=== PATIENT | female | born 1945 | race American Indian/Alaskan Native ===

== ENCOUNTER 2017-02-28 09:40 | Emergency (ER) | payer OTHER ==
[2017-02-28 10:12] VITALS: BMI 29.0
--- NOTE | 2017-02-28 10:19 | PDOC ---
History of Present Illness <Sammy Duncan - Last Filed: 02/28/17 12:33> - General History Source: Patient Exam Limitations: No Limitations - History of Present Illness Initial Comments: 02/28/17 10:48 The patient is a 71 year old female, accompanied by daughter, with a significant past medical history of hypertension, hyperlipidemia and diabetes, who presents to the emergency department complaining of right scapula pain for approximately 5 days. As per daughter, the patient initially experienced pain to the right hip, which resolved on its own. She states the patient then began to feel pain to the right scapula. Daughter reports associated edema to the right scapula. She reports the patients pain is exacerbated movement. She reports a subjective fever, for which the patient was given tylenol with minimal relief. The patient denies any trauma to the back or heavy lifting. The patient denies any chills, cough, headache, or dizziness. The patient denies any paresthesias, numbness, chest pain, shortness of breath, diaphoresis, or palpitations. The patient denies any recent travel or sick contacts Allergies: NKDA Past Surgical History: None reported. Social History: Non smoker. No ETOH or drug use. <Marlene Myles - Last Filed: 02/28/17 17:11> - General Chief Complaint: Pain, Acute Stated Complaint: SHOULDER PAIN Past History - Past Medical History Diabetes: Yes HTN: Yes Hypercholesterolemia: Yes - Psycho/Social/Smoking Cessation Hx Anxiety: No Suicidal Ideation: No Smoking History: Never smoked Have you smoked in the past 12 months: No Information on smoking cessation initiated: No Hx Alcohol Use: No Drug/Substance Use Hx: No Substance Use Type: None Hx Substance Use Treatment: No <Sammy Duncan - Last Filed: 02/28/17 12:33> <Marlene Myles - Last Filed: 02/28/17 17:11> - Past Medical History Allergies/Adverse Reactions: Allergies Allergy/AdvReac Type Severity Reaction Status Date / Time No Known Allergies Allergy Verified 02/28/17 10:12 Home Medications: Ambulatory Orders Amlodipine Besylate [Norvasc -] 10 mg PO DAILY tablet 07/05/16 Aspirin [ASA -] 81 mg PO DAILY tab.chew 07/05/16 Atorvastatin Ca [Lipitor] 10 mg PO Q2D@2200 tablet 07/05/16 Losartan Potassium [Cozaar -] 100 mg PO DAILY tablet 07/05/16 Metformin HCl [Glucophage -] 500 mg PO BID #30 tablet 07/05/16 Oxycodone HCl/Acetaminophen [Percocet 5-325 mg Tablet] 1 - 2 tab PO Q4H #20 tablet MDD 6 02/28/17 Review of Systems - Review of Systems Able to Perform ROS?: Yes Comments:: 02/28/17 10:51 GENERAL/CONSTITUTIONAL: Yes: +fever. No chills. No weakness. HEAD, EYES, EARS, NOSE AND THROAT: No change in vision. No ear pain or discharge. No sore throat. CARDIOVASCULAR: No chest pain or shortness of breath. RESPIRATORY: No cough, wheezing, or hemoptysis. GASTROINTESTINAL: No nausea, vomiting, diarrhea or constipation. GENITOURINARY: No dysuria, frequency, or change in urination. MUSCULOSKELETAL: Yes: +right hip pain, +right scapula pain. No other joint or muscle swelling or pain. No neck pain. SKIN: No rash NEUROLOGIC: No headache, vertigo, loss of consciousness, or change in strength/ sensation. ENDOCRINE: No increased thirst. No abnormal weight change. HEMATOLOGIC/LYMPHATIC: No anemia, easy bleeding, or history of blood clots. ALLERGIC/IMMUNOLOGIC: No hives or skin allergy. <Marlene Myles - Last Filed: 02/28/17 17:11> *Physical Exam - Vital Signs Last Vital Signs Temp Pulse Resp BP Pulse Ox 100.1 F H 108 H 20 153/77 98 02/28/17 10:08 02/28/17 10:08 02/28/17 10:08 02/28/17 10:08 02/28/17 10:08 <Sammy Duncan - Last Filed: 02/28/17 12:33> - Vital Signs Last Vital Signs Temp Pulse Resp BP Pulse Ox 100.1 F H 108 H 20 153/77 98 02/28/17 10:08 02/28/17 10:08 02/28/17 10:08 02/28/17 10:08 02/28/17 10:08 - Physical Exam Comments: 02/28/17 10:52 GENERAL: Awake, alert, and fully oriented, in no acute distress HEAD: No signs of trauma EYES: PERRLA, EOMI, sclera anicteric, conjunctiva clear ENT: Auricles normal inspection, hearing grossly normal, nares patent, oropharynx clear without exudates. Moist mucosa NECK: Normal ROM, supple, no lymphadenopathy, JVD, or masses LUNGS: Breath sounds equal, clear to auscultation bilaterally. No wheezes, and no crackles HEART: Regular rate and rhythm, normal S1 and S2, no murmurs, rubs or gallops ABDOMEN: Soft, nontender, normoactive bowel sounds. No guarding, no rebound. No masses EXTREMITIES: Normal range of motion, no edema. No clubbing or cyanosis. No cords, erythema, or tenderness NEUROLOGICAL: Cranial nerves II through XII grossly intact. Normal speech, normal gait SKIN: Warm, Dry, normal turgor, no rashes or lesions noted. <Marlene Myles - Last Filed: 02/28/17 17:11> Heart Score/ECG Review - ECG Intrepretation Comment:: 02/28/17 17:09 Vent Rate: 98 bpm IMPRESSION: Normal Sinus Rhythm <Marlene Myles - Last Filed: 02/28/17 17:11> ED Treatment Course - LABORATORY CBC & Chemistry Diagram: 02/28/17 11:00 02/28/17 11:00 <Sammy Duncan - Last Filed: 02/28/17 12:33> - LABORATORY CBC & Chemistry Diagram: 02/28/17 11:00 02/28/17 11:00 - RADIOLOGY Radiograph Interpretation: 02/28/17 17:10 EXAM: Right shoulder X-Ray INTERPRETED BY: Dr. Calvert REVIEWED BY: Dr. Duncan IMPRESSION: No acute pathology. EXAM: CXR INTERPRETED BY: Dr. Segura REVIEWED BY: Dr. Duncan IMPRESSION: No evidence of active pulmonary disease. <Marlene Myles - Last Filed: 02/28/17 17:11> *DC/Admit/Observation/Transfer - Discharge Dispostion Admit: No - Attestations Physician Attestion: 02/28/17 10:19 I, Dr. Sammy Duncan, attest that this document has been prepared under my direction and personally reviewed by me in its entirety. I further attest, that it accurately reflects all work, treatment, procedures and medical decision -making performed by me. <Sammy Duncan - Last Filed: 02/28/17 12:33> - Attestations Scribe Attestion: 02/28/17 10:52 Documentation prepared by Marlene Myles, acting as medical stenographer for Sammy Duncan DO. <Marlene Myles - Last Filed: 02/28/17 17:11> Diagnosis at time of Disposition: Bursitis of shoulder, right Diabetes mellitus out of control Qualifiers: Diabetes mellitus type: type 2 Diabetes mellitus complication status: without complication - Discharge Dispostion Disposition: HOME Condition at time of disposition: Improved - Prescriptions Prescriptions: Oxycodone HCl/Acetaminophen [Percocet 5-325 mg Tablet] 1 - 2 tab PO Q4H #20 tablet MDD 6 - Referrals Referrals: Masha Hart MD [Primary Care Provider] - Ronaldo Vieira MD [Staff Physician] - - Patient Instructions Printed Discharge Instructions: DI for Bursitis Additional Instructions: TAKE YOUR BLOOD SUGAR MEDICINE SOON YOU GET HOME. TEST YOUR SUGARS TODAY AND THROUGH THE WEEKEND. YOU CAN NOT STAY IN THE 400"s. RETURN TO US IF YOU CAN NOT GET YOUR SUGAR DOWN. Take the percocet for bad pain. wear the sling for comfort. Follow up with orthopedics next week. Best- Dr. Sammy Duncan
[2017-02-28 11:08] VITALS: TEMP 100.7
[2017-02-28 11:23] LABS: BASOPHIL 0.9 % (0-2.0); EOSINOPHIL 0.5 % (0-4.5); MCH 26.8 pg (25.7-33.7); MCHC 34.2 g/dl (32.0-36.0); MEAN CELL VOLUME 78.3 fl (80-96); MEAN PLT VOLUME 7.5 fl (7.5-11.1); NEUTROPHILS 85.3 % (42.8-82.8); PLATELET COUNT 248 K/MM3 (134-434); RDW 13.3 % (11.6-15.6)
[2017-02-28 11:24] LABS: INR 1.14 (0.82-1.09); PROTHROMBIN TIME (PATIENT) 12.6 SEC (9.98-11.88)
[2017-02-28 11:35] LABS: ALBUMIN 3.4 g/dl (3.4-5.0); ANION GAP 16 (8-16); BILIRUBIN,TOTAL 0.4 mg/dL (0.2-1.0); CALCIUM 9.3 mg/dL (8.5-10.1); CO2 24 mmol/L (21-32); COCKROFT - GAULT 46.7245; CREATININE 1.1 mg/dL (0.55-1.02); SGOT/AST 10 U/L (15-37); SGPT/ALT 19 U/L (12-78); TOT PROT 7.5 g/dl (6.4-8.2)
[2017-02-28 11:38] LABS: ALK PHOS 108 U/L (45-117); TROPONIN I < 0.02 ng/ml (0.00-0.05)
[2017-02-28 11:39] LABS: GLUCOSE,RANDOM 427 mg/dL (74-106)
[2017-02-28 11:46] LABS: URINE APPEARANCE CLEAR; URINE BILIRUBIN NEGATIVE (NEGATIVE); URINE BLOOD NEGATIVE (NEGATIVE); URINE COLOR STRAW; URINE GLUCOSE (UA) 3+ (NEGATIVE); URINE KETONE NEGATIVE (NEGATIVE); URINE NITRITE NEGATIVE (NEGATIVE); URINE PROTEIN NEGATIVE (NEGATIVE); URINE UROBILINOGEN NEGATIVE E.U./dl (0.2-1.0)
[2017-02-28 11:50] LABS: URINE LEUK ESTERASE TRACE (NEGATIVE)
[2017-02-28 11:51] LABS: URINE RBC 2 /hpf (0-3); URINE WBC 3 /hpf (3-5)
[2017-02-28] MEDS ORDERED: OXYCODONE/APAP 5/325MG COMBO TABLET PO ONE (12:06)
[2017-02-28] MEDS ORDERED: INSULIN REGULAR HUMAN 100 UNITS/ML *VIAL IVPUSH ONE (12:08)
[2017-02-28] MEDS ORDERED: OXYCODONE/APAP 5/325MG COMBO TABLET ONE (12:58)
[2017-02-28 13:09] VITALS: BP 181/77; PULSE 91
--- NOTE | 2017-02-28 16:11 | EKG ---
Test Reason : Blood Pressure : / mmHG Vent. Rate : 098 BPM Atrial Rate : 098 BPM P-R Int : 160 ms QRS Dur : 090 ms QT Int : 340 ms P-R-T Axes : 067 026 029 degrees QTc Int : 434 ms NORMAL SINUS RHYTHM NORMAL ECG WHEN COMPARED WITH ECG OF 03-JUL-2016 11:50, NONSPECIFIC T WAVE ABNORMALITY NO LONGER EVIDENT IN ANTERIOR LEADS Confirmed by AMADOR HAWKINS MD ([id number]) on 02/28/2017 4:10:38 PM Referred By: Confirmed By:AMADOR HAWKINS MD
== END 2017-02-28 13:09 | disposition home or self-care (01) ==
LOC: JER 09:40
PROC: 3E033VG Introduction of Insulin into Peripheral Vein, Percutaneous Approach (ICD-10-PCS; principal; 2017-02-28)
DX: M75.51 Bursitis of right shoulder (principal); E11.65 Type 2 diabetes mellitus with hyperglycemia; Z79.84 Long term (current) use of oral hypoglycemic drugs; I10 Essential (primary) hypertension; E78.00 Pure hypercholesterolemia, unspecified
CPT/HCPCS: 36415; 71010-TC; 73030-TC-RT; 80053; 81003; 81015; 82550; 84484; 85025; 85610; 87040; 87086; 93005; 93010; 96374; 99283-25

== ENCOUNTER 2018-09-19 11:43 | Inpatient (IN) | payer OTHER ==
[2018-09-19] MEDS ORDERED: SODIUM CHLORIDE 1,000 ML IV STA (12:52)
[2018-09-19] MEDS ORDERED: ACETAMINOPHEN 1000 MG/100 ML VIAL (NON FORMULARY) IVPB ONE (12:52)
[2018-09-19] MEDS ORDERED: ACETAMINOPHEN INJECTION 100 ML IVPB ONE (13:09)
[2018-09-19 13:30] LABS: BASO % 0.7 % (0-2.0); HEMATOCRIT 34.2 % (32.4-45.2); LYMPH % 1.7 % (8-40); MCH 26.4 pg (25.7-33.7); MEAN CELL VOLUME 75.3 fl (80-96); MEAN PLT VOLUME 7.2 fl (7.5-11.1); NEUT % 92.6 % (42.8-82.8); PLATELET COUNT 325 K/MM3 (134-434); RBC 4.53 M/mm3 (3.60-5.2); RDW 14.9 % (11.6-15.6); WHITE BLOOD COUNT 29.1 K/mm3 (4.0-10.0)
[2018-09-19 13:33] LABS: URINE APPEARANCE CLEAR; URINE BILIRUBIN NEGATIVE (<2.0 mg/dL); URINE COLOR LTYELLOW; URINE GLUCOSE (UA) 3+ (NEGATIVE); URINE KETONE NEGATIVE (NEGATIVE); URINE LEUK ESTERASE 2+ (NEGATIVE); URINE NITRITE NEGATIVE (NEGATIVE); URINE PROTEIN 2+ (NEGATIVE); URINE UROBILINOGEN NEGATIVE mg/dL (0.2-1.0)
[2018-09-19 13:42] LABS: INR 1.36 (0.83-1.09); PROTHROMBIN TIME (PATIENT) 16.1 SEC (9.7-13.0)
[2018-09-19 13:43] LABS: VENOUS PC02 42.2 mmHg (38-52); VENOUS PH 7.32 (7.32-7.42); VENOUS PO2 39.1 mmHg (28-48)
[2018-09-19 13:55] LABS: EPI CELLS RARE /HPF (FEW); URINE BACTERIA RARE /hpf (NONE SEEN)
[2018-09-19 14:06] LABS: ALBUMIN 3.6 g/dl (3.4-5.0); ALK PHOS 109 U/L (45-117); ANION GAP 13 MMOL/L (8-16); BILIRUBIN,TOTAL 0.8 mg/dL (0.2-1); BLOOD UREA NITROGEN 19 mg/dL (7-18); CALCIUM 9.5 mg/dL (8.5-10.1); CHLORIDE 85 mmol/L (98-107); CO2 23 mmol/L (21-32); CREATININE 1.1 mg/dL (0.55-1.3); POTASSIUM 3.6 mmol/L (3.5-5.1); SGOT/AST 12 U/L (15-37); SGPT/ALT 19 U/L (13-61); SODIUM 121 mmol/L (136-145); TOT PROT 7.7 g/dl (6.4-8.2)
--- NOTE | 2018-09-19 14:06 | PDOC ---
History of Present Illness - General Chief Complaint: Blood Sugar Problem Stated Complaint: SUGAR PROBLEM Time Seen by Provider: 09/19/18 12:11 - History of Present Illness Initial Comments: 09/19/18 14:00 The patient is a 72 year old female with a history of hypertension, hyperlipidemia, and diabetes who presents to the emergency department with weakness and high blood sugar since this morning. Pt endorses lower abdominal pain and fevers since last night. Denies N/V but endorses diarrhea. Denies CP/ SOB. The patient reports that she woke up this morning and measured her blood sugar to be 500. She admits to not taking her DM meds for 2 days. The patient denies any other symptoms. She denies any chills, nausea, vomiting, constipation , or urinary symptoms. She denies any chest pain, shortness of breath, headache or dizziness. The patient denies any other complaints. Past History - Past Medical History Allergies/Adverse Reactions: Allergies Allergy/AdvReac Type Severity Reaction Status Date / Time No Known Allergies Allergy Verified 09/19/18 12:21 Home Medications: Ambulatory Orders Amlodipine Besylate [Norvasc -] 10 mg PO DAILY tablet 07/05/16 Aspirin [ASA -] 81 mg PO DAILY tab.chew 07/05/16 Atorvastatin Ca [Lipitor] 10 mg PO Q2D@2200 tablet 07/05/16 Losartan Potassium [Cozaar -] 100 mg PO DAILY tablet 07/05/16 metFORMIN HCL [Glucophage -] 500 mg PO BID #30 tablet 07/05/16 Oxycodone HCl/Acetaminophen [Percocet 5-325 mg Tablet] 1 - 2 tab PO Q4H #20 tablet MDD 6 02/28/17 COPD: No CHF: No Diabetes: Yes HTN: Yes Hypercholesterolemia: Yes - Suicide/Smoking/Psychosocial Hx Smoking History: Never smoked Have you smoked in the past 12 months: No Information on smoking cessation initiated: No Hx Alcohol Use: No Drug/Substance Use Hx: No Substance Use Type: None Hx Substance Use Treatment: No Review of Systems - Review of Systems Comments:: 09/19/18 14:08 GENERAL/CONSTITUTIONAL: + fever no chills. No weakness. HEAD, EYES, EARS, NOSE AND THROAT: No change in vision. No ear pain or discharge. No sore throat. CARDIOVASCULAR: No chest pain, no shortness of breath, no loss of consciousness RESPIRATORY: No cough, wheezing, or hemoptysis. GASTROINTESTINAL: + RLQ pain and diarrhea, No nausea, vomiting, or constipation. GENITOURINARY: No dysuria, frequency, or change in urination. MUSCULOSKELETAL: No joint or muscle swelling or pain. No neck or back pain. SKIN: No rash NEUROLOGIC: No vertigo, no change in strength/sensation. ENDOCRINE: No increased thirst. No abnormal weight change. HEMATOLOGIC/LYMPHATIC: No anemia, easy bleeding, or history of blood clots. ALLERGIC/IMMUNOLOGIC: No hives or skin allergy. *Physical Exam - Vital Signs Last Vital Signs Temp Pulse Resp BP Pulse Ox 102.3 F H 112 H 18 155/61 100 09/19/18 12:35 09/19/18 11:43 09/19/18 11:43 09/19/18 11:43 09/19/18 11:43 - Physical Exam Comments: 09/19/18 14:09 GENERAL: Awake, alert, and fully oriented, in no acute distress. HEAD: No signs of trauma EYES: PERRLA, EOMI, sclera anicteric, conjunctiva clear ENT: Auricles normal inspection, hearing grossly normal, nares patent, oropharynx clear without exudates. Moist mucosa NECK: Nontender, no stepoffs, Normal ROM, supple, no lymphadenopathy, JVD, or masses LUNGS: Breath sounds equal, clear to auscultation bilaterally. No wheezes, and no crackles HEART: Regular rate and rhythm, normal S1 and S2, no murmurs, rubs or gallops ABDOMEN: + RLQ mild tenderness, normoactive bowel sounds. No guarding, no rebound. No masses EXTREMITIES: Normal range of motion, no edema. No clubbing or cyanosis. No cords, erythema, or tenderness NEUROLOGICAL: Cranial nerves II through XII intact. 5/5 strength and sensation in all extremities, Normal speech, normal gait, normal cerebellar function SKIN: Warm, Dry, normal turgor, no rashes or lesions noted. Moderate Sedation - Procedure Monitoring Vital Signs: Procedure Monitoring Vital Signs Temperature 102.3 F H 09/19/18 12:35 Pulse Rate 112 H 09/19/18 11:43 Respiratory Rate 18 09/19/18 11:43 Blood Pressure 155/61 09/19/18 11:43 O2 Sat by Pulse Oximetry (%) 100 09/19/18 11:43 ED Treatment Course - LABORATORY CBC & Chemistry Diagram: 09/19/18 13:06 09/19/18 13:06 - ADDITIONAL ORDERS Additional order review: Laboratory Results 09/19/18 09/19/18 09/19/18 13:06 13:06 13:06 PT with INR INR PTT (Actin FS) VBG pH 7.32 POC VBG pCO2 42.2 POC VBG pO2 39.1 Mixed VBG HCO3 21.2 Urine Color Ltyellow Urine Appearance Clear Urine pH 6.0 Ur Specific [place] 1.011 Urine Protein 2+ H Urine Glucose (UA) 3+ H Urine Ketones Negative Urine Blood 1+ H Urine Nitrite Negative Urine Bilirubin Negative Urine Urobilinogen Negative Ur Leukocyte Esterase 2+ H D Acetone, Qual Negative L 09/19/18 13:06 PT with INR 16.10 H INR 1.36 H PTT (Actin FS) 25.0 L VBG pH POC VBG pCO2 POC VBG pO2 Mixed VBG HCO3 Urine Color Urine Appearance Urine pH Ur Specific [place] Urine Protein Urine Glucose (UA) Urine Ketones Urine Blood Urine Nitrite Urine Bilirubin Urine Urobilinogen Ur Leukocyte Esterase Acetone, Qual 09/19/18 13:06 RBC 4.53 MCV 75.3 L MCHC 35.0 RDW 14.9 D MPV 7.2 L Neutrophils % 92.6 H Lymphocytes % 1.7 L D Monocytes % 5.0 Eosinophils % 0.0 D Basophils % 0.7 - RADIOLOGY Radiology Studies Ordered: Category Date Time Status ABDOMEN & PELVIS CT WITH CONTR [CT] Stat CT Scan 09/19/18 12:55 Ordered CHEST X-RAY PORTABLE* [RAD] Stat Radiology 09/19/18 12:51 Ordered - Medications Given in the ED: ED Medications Discontinued Medications Generic Name Dose Route Start Last Admin Trade Name Freq PRN Reason Stop Dose Admin Acetaminophen 1,000 mg 09/19/18 12:52 09/19/18 13:10 Ofirmev Injection - IVPB 09/19/18 12:53 1,000 mg ONCE ONE Administration Sodium Chloride 1,000 mls @ 1,000 mls/hr 09/19/18 12:52 09/19/18 13:10 Normal Saline - IV 09/19/18 13:51 1,000 mls/hr ASDIR STA Administration Medical Decision Making - Medical Decision Making 09/19/18 14:09 72 F with fevers and weakness since last night, found to have high fsg today. Febrile in ED and tachycardic. Will perform septic work up. Suspect UTI. However , pt with RLQ pain ,will r/o appy. Pt's elevated sugars likely 2/2 med noncompliance and infection. Will assess for DKA/HHS. - Labs, cultures - CXR, UA - CTAP - IVF, tylenol 09/19/18 14:32 Labs notable for WBC 29 Na 121, corrected for glucose is 128. Will continue IVF UA consistent with UTI Zosyn given for urosepsis 09/19/18 16:22 CT shows ureteritis 09/19/18 16:29 Pt admitted to hospitalist. *DC/Admit/Observation/Transfer Diagnosis at time of Disposition: Urinary tract infection, Sepsis, Abdominal pain - Discharge Dispostion Decision to Admit order: Yes - Referrals Referrals: Masha Hart MD [Primary Care Provider] - - Patient Instructions - Post Discharge Activity - Attestations Physician Attestion: 09/19/18 16:30 I, Dr. Jose Mallory MD, attest that this document has been prepared under my direction and personally reviewed by me in its entirety. I further attest, that it accurately reflects all work, treatment, procedures and medical decision -making performed by me.
[2018-09-19 14:13] LABS: GLUCOSE,RANDOM 375 mg/dL (74-106)
[2018-09-19] MEDS ORDERED: PIPERACILLIN/TAZOB 4.5 GM 4.5 GM/100 ML BAG IVPB ONE (14:35)
[2018-09-19 14:38] LABS: ANISOCYTOSIS 2+; MACROCYTOSIS 0; PLATELET ESTIMATE NORMAL
--- NOTE | 2018-09-19 17:37 | HP ---
CHIEF COMPLAINT: Elevated glucose PCP: Dr. Hart HISTORY OF PRESENT ILLNESS: 72 year old female with a PMH significant for HTN, HLD, and diabetes presented to the ED with home glucose reading of 500 and muscle weakness since that that started this AM. Adult daughters provided history. She reports having diarrhea for 2 days and abdominal pain. She did not take her medications for the past 2 days. She has not had a UTI in 3 years. She reports her most recent Hgb A1c was about 2 weeks ago and it was 9. Patient is ambulatory at home and walks around the block regularly. Overall her health has been generally good. Denies lightheadedness, syncope, SOB, cough, congestion, chest pain, palpitations, n/v. Upon admission to the ED, she was found to have a temperature of 102.3, labs notable for WBC of 29, glucose of 375, CT showed right ureteritis. She was given zosyn, IV APAP, and a liter of NS. She reports her pain has improved since her admission and she is ready to go home. Recent Travel: No PAST MEDICAL HISTORY: DM HTN HLD PAST SURGICAL HISTORY: Hysterectomy Social History: Born in [place], Swedish speaking only, , has adult children Smoking: Never Alcohol: Never Drugs: Never Family History: CVA: Mother, father, sister Liver Cancer: Sister Allergies No Known Allergies Allergy (Verified 09/19/18 12:21) HOME MEDICATIONS: Home Medications Medication Instructions Recorded Amlodipine Besylate [Norvasc -] 10 mg PO DAILY tablet 07/05/16 Aspirin [ASA -] 81 mg PO DAILY tab.chew 07/05/16 Atorvastatin Ca [Lipitor] 10 mg PO Q2D@2200 tablet 07/05/16 Glimepiride 4 mg PO 09/19/18 Potassium Chloride [Klor-Con M10] 10 meq PO 09/19/18 Sitagliptin Phos/Metformin HCl BID 09/19/18 [Janumet Xr 50-1,000 mg Tablet] REVIEW OF SYSTEMS CONSTITUTIONAL: (+) fever, generalized weakness Absent: chills, diaphoresis, malaise, loss of appetite, weight change HEENT: Absent: rhinorrhea, nasal congestion, throat pain, throat swelling, difficulty swallowing, mouth swelling, ear pain, eye pain, visual changes CARDIOVASCULAR: Absent: chest pain, syncope, palpitations, irregular heart rate, lightheadedness , peripheral edema RESPIRATORY: Absent: cough, shortness of breath, dyspnea with exertion, orthopnea, wheezing, stridor, hemoptysis GASTROINTESTINAL: (+) abdominal pain, diarrhea Absent: abdominal distension, nausea, vomiting, constipation, melena, hematochezia GENITOURINARY: Absent: dysuria, frequency, urgency, hesitancy, hematuria, flank pain, genital pain MUSCULOSKELETAL: Absent: myalgia, arthralgia, joint swelling, back pain, neck pain SKIN: Absent: rash, itching, pallor HEMATOLOGIC/IMMUNOLOGIC: Absent: easy bleeding, easy bruising, lymphadenopathy, frequent infections ENDOCRINE: Absent: unexplained weight gain, unexplained weight loss, heat intolerance, cold intolerance NEUROLOGIC: Absent: headache, focal weakness or paresthesias, dizziness, unsteady gait, seizure, mental status changes, bladder or bowel incontinence PSYCHIATRIC: Absent: anxiety, depression, suicidal or homicidal ideation, hallucinations. PHYSICAL EXAMINATION Vital Signs - 24 hr 09/19/18 09/19/18 09/19/18 11:43 12:35 15:00 Temperature 98.5 F 102.3 F H 97.9 F Pulse Rate 112 H Pulse Rate [ 109 H Right Radial] Respiratory 18 16 Rate Blood Pressure 155/61 Blood Pressure 141/63 [Right] O2 Sat by Pulse 100 99 Oximetry (%) GENERAL: Awake, alert, and fully oriented, in no acute distress. HEAD: Normal with no signs of trauma. EYES: Pupils equal, round and reactive to light, extraocular movements intact, sclera anicteric, conjunctiva clear. No lid lag. EARS, NOSE, THROAT: Ears normal, nares patent, oropharynx clear without exudates. Moist mucous membranes. NECK: Normal range of motion, supple without lymphadenopathy, JVD, or masses. LUNGS: Breath sounds equal, clear to auscultation bilaterally. No wheezes, and no crackles. No accessory muscle use. HEART: Regular rate and rhythm, normal S1 and S2 without murmur, rub or gallop. ABDOMEN: Soft, nontender, not distended, normoactive bowel sounds, no guarding, no rebound, no masses. No hepatomegaly or splenomegaly. MUSCULOSKELETAL: Normal range of motion at all joints. No bony deformities or tenderness. No CVA tenderness. UPPER EXTREMITIES: 2+ pulses, warm, well-perfused. No cyanosis. No clubbing. No peripheral edema. LOWER EXTREMITIES: 2+ pulses, warm, well-perfused. No calf tenderness. No peripheral edema. NEUROLOGICAL: Cranial nerves II-XII intact. Normal speech. Normal gait. PSYCHIATRIC: Cooperative. Good eye contact. Appropriate mood and affect. SKIN: Warm, dry, normal turgor, no rashes or lesions noted, normal capillary refill. Laboratory Results - last 24 hr 09/19/18 09/19/18 09/19/18 13:06 13:06 13:06 WBC 29.1 H RBC 4.53 Hgb 12.0 Hct 34.2 MCV 75.3 L MCH 26.4 MCHC 35.0 RDW 14.9 D Plt Count 325 D MPV 7.2 L Absolute Neuts (auto) 27.0 H Neutrophils % 92.6 H Neutrophils % (Manual) 84.0 H Band Neutrophils % 5.0 Lymphocytes % 1.7 L D Lymphocytes % (Manual) 2.0 L Monocytes % 5.0 Monocytes % (Manual) 6 Eosinophils % 0.0 D Eosinophils % (Manual) 0.0 Basophils % 0.7 Basophils % (Manual) 0.0 Myelocytes % (Man) 1 Promyelocytes % (Man) 0 Blast Cells % (Manual) 0 Nucleated RBC % 0 Metamyelocytes 1 Hypochromia 0 Platelet Estimate Normal Platelet Comment Present Polychromasia 1+ Poikilocytosis 1+ Anisocytosis 2+ Microcytosis 2+ Macrocytosis 0 PT with INR 16.10 H INR 1.36 H PTT (Actin FS) 25.0 L VBG pH POC VBG pCO2 POC VBG pO2 Mixed VBG HCO3 Sodium Potassium Chloride Carbon Dioxide Anion Gap BUN Creatinine Creat Clearance w eGFR Random Glucose Lactic Acid Calcium Total Bilirubin AST ALT Alkaline Phosphatase Troponin I Total Protein Albumin Urine Color Ltyellow Urine Appearance Clear Urine pH 6.0 Ur Specific [place] 1.011 Urine Protein 2+ H Urine Glucose (UA) 3+ H Urine Ketones Negative Urine Blood 1+ H Urine Nitrite Negative Urine Bilirubin Negative Urine Urobilinogen Negative Ur Leukocyte Esterase 2+ H D Urine WBC (Auto) 105 Urine RBC (Auto) 6 Ur Epithelial Cells Rare Urine Bacteria Rare Acetone, Qual Influenza A (Rapid) Influenza B (Rapid) 09/19/18 09/19/18 09/19/18 13:06 13:06 13:06 WBC RBC Hgb Hct MCV MCH MCHC RDW Plt Count MPV Absolute Neuts (auto) Neutrophils % Neutrophils % (Manual) Band Neutrophils % Lymphocytes % Lymphocytes % (Manual) Monocytes % Monocytes % (Manual) Eosinophils % Eosinophils % (Manual) Basophils % Basophils % (Manual) Myelocytes % (Man) Promyelocytes % (Man) Blast Cells % (Manual) Nucleated RBC % Metamyelocytes Hypochromia Platelet Estimate Platelet Comment Polychromasia Poikilocytosis Anisocytosis Microcytosis Macrocytosis PT with INR INR PTT (Actin FS) VBG pH 7.32 POC VBG pCO2 42.2 POC VBG pO2 39.1 Mixed VBG HCO3 21.2 Sodium 121 L Potassium 3.6 Chloride 85 L Carbon Dioxide 23 Anion Gap 13 BUN 19 H Creatinine 1.1 Creat Clearance w eGFR 48.82 Random Glucose 375 H* Lactic Acid Calcium 9.5 Total Bilirubin 0.8 AST 12 L ALT 19 Alkaline Phosphatase 109 Troponin I < 0.02 Total Protein 7.7 Albumin 3.6 Urine Color Urine Appearance Urine pH Ur Specific [place] Urine Protein Urine Glucose (UA) Urine Ketones Urine Blood Urine Nitrite Urine Bilirubin Urine Urobilinogen Ur Leukocyte Esterase Urine WBC (Auto) Urine RBC (Auto) Ur Epithelial Cells Urine Bacteria Acetone, Qual Influenza A (Rapid) Influenza B (Rapid) 09/19/18 09/19/18 09/19/18 13:06 13:06 13:30 WBC RBC Hgb Hct MCV MCH MCHC RDW Plt Count MPV Absolute Neuts (auto) Neutrophils % Neutrophils % (Manual) Band Neutrophils % Lymphocytes % Lymphocytes % (Manual) Monocytes % Monocytes % (Manual) Eosinophils % Eosinophils % (Manual) Basophils % Basophils % (Manual) Myelocytes % (Man) Promyelocytes % (Man) Blast Cells % (Manual) Nucleated RBC % Metamyelocytes Hypochromia Platelet Estimate Platelet Comment Polychromasia Poikilocytosis Anisocytosis Microcytosis Macrocytosis PT with INR INR PTT (Actin FS) VBG pH POC VBG pCO2 POC VBG pO2 Mixed VBG HCO3 Sodium Potassium Chloride Carbon Dioxide Anion Gap BUN Creatinine Creat Clearance w eGFR Random Glucose Lactic Acid 1.8 Calcium Total Bilirubin AST ALT Alkaline Phosphatase Troponin I Total Protein Albumin Urine Color Urine Appearance Urine pH Ur Specific [place] Urine Protein Urine Glucose (UA) Urine Ketones Urine Blood Urine Nitrite Urine Bilirubin Urine Urobilinogen Ur Leukocyte Esterase Urine WBC (Auto) Urine RBC (Auto) Ur Epithelial Cells Urine Bacteria Acetone, Qual Negative L Influenza A (Rapid) Negative Influenza B (Rapid) Negative ASSESSMENT/PLAN: 72 year old female with a PMH significant for HTN, HLD, and diabetes presented to the ED with home glucose reading of 500 and muscle weakness since that that started this AM. She reports having diarrhea for 2 days and abdominal pain. CT showed right ureteritis and WBC count of 29. She was admitted and started on Zosyn. Uretheritis - CT shows right ureteritis - WBC 29 - Given Zosyn 4.5 mg x 1 in the ED - Blood and urine culture pending - ID consult ordered DM - Uncontrolled - Patient reports A1c from 2 weeks ago was in the 9s - Random glucose upon admission 375, could be elevated d/t infection - Levimer 5 mg HS x 1 - Monitor glucose - SS with novolog - Diabetic diet - Asa 81 mg PO qday - HOLD home Janumet and Glimiperide - Consider endocrine consult HTN - Amlodipine 10 mg PO qday - Losartan/HCZT 100/25 mg qday HLD - Simvastatin 10 mg PO QHS Supplement - KCL 10 meq PO qday Prophylaxis - DVT: Heparin SQ FEN - NS with 20 meq Kcl @ 100 cc/hr - Replete as needed - Diabetic sodium controlled diet Disp: Patient requires further inpatient monitoring FULL CODE Visit type - Emergency Visit Emergency Visit: Yes ED Registration Date: 09/19/18 Care time: The patient presented to the Emergency Department on the above date and was hospitalized for further evaluation of their emergent condition. - New Patient This patient is new to me today: Yes Date on this admission: 09/20/18 - Critical Care Critical Care patient: No
[2018-09-19] MEDS: PIPERACILLIN/TAZOB 3.375 GM 3.375 GM in DEXTROSE 5%-WATER - 50 ML IVPB SCH (18:42)
[2018-09-19] MEDS ORDERED: INSULIN (LEVEMIR) 100 UNITS/ML UNITS SQ ONE ×3 (19:00→20:24)
[2018-09-19] MEDS ORDERED: ATORVASTATIN CA 10 MG TABLET (FP) ONE (20:24)
[2018-09-19] MEDS ORDERED: HEPARIN NA (PORCINE) 5,000 UNITS/ML 1ML VIAL ONE (20:25)
[2018-09-19] MEDS: HEPARIN NA (PORCINE) 5,000 UNITS/ML 1ML VIAL SQ SCH (21:02)
[2018-09-19] MEDS: ATORVASTATIN CA 10 MG TABLET (FP) PO SCH (21:02)
--- NOTE | 2018-09-19 21:18 | EKG ---
Test Reason : Blood Pressure : / mmHG Vent. Rate : 117 BPM Atrial Rate : 117 BPM P-R Int : 150 ms QRS Dur : 090 ms QT Int : 314 ms P-R-T Axes : 070 023 046 degrees QTc Int : 438 ms SINUS TACHYCARDIA OTHERWISE NORMAL ECG WHEN COMPARED WITH ECG OF 28-FEB-2017 10:52, NO SIGNIFICANT CHANGE WAS FOUND Confirmed by SHAR MARY MD ([id number]) on 09/19/2018 9:17:51 PM Referred By: Confirmed By:SHAR MARY MD
[2018-09-19] MEDS ORDERED: ACETAMINOPHEN 325 MG TABLET (FP) PO PRN (21:31)
[2018-09-19] MEDS ORDERED: ACETAMINOPHEN 325 MG TABLET (FP) ONE (21:39)
[2018-09-19] MEDS: SODIUM CHLORIDE 0.9%/KCL 20 MEQ/1,000 ML INFUS.BAG IV SCH (21:57)
[2018-09-20] MEDS ORDERED: PIPERACILLIN/TAZOB 3.375 GM 3.375 GM/50 ML BAG IVPB ONE ×2 (00:36→09:50)
[2018-09-20] MEDS: PIPERACILLIN/TAZOB 3.375 GM 3.375 GM in DEXTROSE 5%-WATER - 50 ML IVPB SCH ×2 (01:31→09:30)
[2018-09-20] MEDS ORDERED: INSULIN (NOVOLOG) ASPART 100 UNITS/ML 10ML VIAL SQ ONE (01:51)
[2018-09-20] MEDS ORDERED: INSULIN (NOVOLOG) ASPART 100 UNITS/ML 10ML VIAL ONE ×2 (02:07→06:53)
[2018-09-20 05:56] LABS: HEMATOCRIT 32.9 % (32.4-45.2); HEMOGLOBIN 10.9 GM/dL (10.7-15.3); MCH 25.3 pg (25.7-33.7); MCHC 33.1 g/dl (32.0-36.0); MEAN CELL VOLUME 76.6 fl (80-96); PLATELET COUNT 227 K/MM3 (134-434); RDW 14.6 % (11.6-15.6); WHITE BLOOD COUNT 28.6 K/mm3 (4.0-10.0)
[2018-09-20 06:42] LABS: ANION GAP 12 MMOL/L (8-16); BLOOD UREA NITROGEN 16 mg/dL (7-18); CALCIUM 8.7 mg/dL (8.5-10.1); CHLORIDE 94 mmol/L (98-107); CO2 24 mmol/L (21-32); CREATININE 1.2 mg/dL (0.55-1.3); GLUCOSE,RANDOM 156 mg/dL (74-106); MAGNESIUM 2.1 mg/dL (1.8-2.4); POTASSIUM 3.5 mmol/L (3.5-5.1); SODIUM 131 mmol/L (136-145)
[2018-09-20] MEDS: INSULIN SLIDING SCALE (NOVOLOG) 1 VIAL SQ SCH ×3 (06:58→17:49)
--- NOTE | 2018-09-20 10:07 | CON.ID ---
Consult - History of Present Illness History of Present Illness: 72 y.o. female with PMH of uncontrolled DM (reported HgA1C 9), HTN, HLD, s/p hysterectomy presents with c/o fever and weakness with myalgias that began the day prior to arrival. Pt reported abdominal pain mainly in the Rt lower abdomen and diarrhea but without nausea/vomiting. In the ER she was noted to have glucose > 500 as well as fever 102.3 with tachycardia. Labs revealed an elevated wbc 29K and hyponatremia. Pt denies shortness of breath, cough, chest pain, headache, urinary frequency/urgency/dysuria. Has been noncompliant with diabetes medication in the last few days. Currently pt is alert, fully responsive, without distress. She is Swedish-speaking only. Translation had been provided by daughter. Medical record reviewed. - History Source History Provided By: Family Member, Medical Record - Past Medical History Cardio/Vascular: Yes: HTN, Hyperlipdemia Endocrine: Yes: Diabetes Mellitus - Past Surgical History Past Surgical History: Yes: Hysterectomy - Alcohol/Substance Use Hx Alcohol Use: No - Smoking History Smoking history: Never smoked Have you smoked in the past 12 months: No Home Medications - Allergies Allergies/Adverse Reactions: Allergies Allergy/AdvReac Type Severity Reaction Status Date / Time No Known Allergies Allergy Verified 09/19/18 12:21 - Home Medications Home Medications: Ambulatory Orders Amlodipine Besylate [Norvasc -] 10 mg PO DAILY tablet 07/05/16 Aspirin [ASA -] 81 mg PO DAILY tab.chew 07/05/16 Atorvastatin Ca [Lipitor] 10 mg PO Q2D@2200 tablet 07/05/16 Glimepiride 4 mg PO 09/19/18 Potassium Chloride [Klor-Con M10] 10 meq PO 09/19/18 Sitagliptin Phos/Metformin HCl [Janumet Xr 50-1,000 mg Tablet] BID 09/19/18 Review of Systems - Review of Systems Constitutional: reports: Fever, Malaise Eyes: reports: No Symptoms. denies: Blind Spots, Blurred Vision, Double Vision , Eye Pain, Floaters, Photophobia, Recent Change in Vision, Other HENT: reports: No Symptoms. denies: Difficult Swallowing, Ear Discharge, Ear Pain, Epistaxis, Gingival Bleeding, Hearing Loss, Mouth Swelling, Nasal Congestion, Ocular Prosthesis, Throat Pain, Toothache, Ringing in Ears, Other Neck: reports: No Symptoms Cardiovascular: reports: No Symptoms. denies: Chest Pain, Edema, Palpitations, Shortness of Breath, Other Respiratory: reports: No Symptoms. denies: Cough, Exercise Intolerance, Hemoptysis, Orthopnea, PND, Snoring, SOB, SOB on Exertion, Wheezing, Other Gastrointestinal: reports: Abdominal Pain (Rt lower abd), Diarrhea Genitourinary: reports: No Symptoms. denies: Burning, Discharge, Dysuria, Flank Pain, Frequency, Hematuria, Incontinence, Lesions, Menses, Pain, Testicular Mass, Testicular Pain, Testicular Swelling, Urgency, Vaginal Bleeding , Other Breasts: reports: No Symptoms Reported Musculoskeletal: reports: No Symptoms. denies: Back Pain, Crepitus, Decreased ROM, Extremity Pain, Joint Pain, Joint Swelling, Muscle Pain, Muscle Cramps, Muscle Weakness, Other Integumentary: reports: No Symptoms. denies: Blister, Bruising, Change in Color , Eczema, Erythema, Incision, Lesions, Lump, Pallor, Pruritis, Rash, Wound, Other Neurological: reports: No Symptoms. denies: Change in LOC, Change in Speech, Confusion, Dizziness, Headache, Incoordination, Numbness, Parasthesia, Pre- Existing Deficit, Seizure, Syncope, Tremors, Unsteady Gait, Weakness, Other Endocrine: reports: No Symptoms. denies: Excessive Sweating, Flushing, Increased Hunger, Increased Thirst, Intolerance to Cold, Intolerance to Heat, Unexplained Weight Gain, Unexplained Weight Loss, Other Hematology/Lymphatic: reports: No Symptoms. denies: Easily Bruised, Excessive Bleeding, Swollen Glands, Other Psychiatric: reports: No Symptoms. denies: Altered Sleep Pattern, Anxiety, Depression, Hallucinations, Panic, Paranoia, Suicidal, Other Physical Exam Vital Signs: Vital Signs Temperature 99.1 F 09/20/18 09:26 Pulse Rate 94 H 09/20/18 09:26 Respiratory Rate 16 09/20/18 09:26 Blood Pressure 143/62 09/20/18 09:26 O2 Sat by Pulse Oximetry (%) 99 09/20/18 09:26 Constitutional: Yes: No Distress, Calm Eyes: Yes: Conjunctiva Clear HENT: Yes: Atraumatic Neck: Yes: Supple, Trachea Midline Cardiovascular: Yes: Tachycardia Respiratory: Yes: CTA Bilaterally Gastrointestinal: Yes: Normal Bowel Sounds, Soft Renal/: Yes: WNL Musculoskeletal: Yes: WNL Extremities: Yes: WNL Edema: No Labs: CBC, BMP 09/20/18 05:20 09/20/18 05:20 Imaging - Results Chest X-ray: Report Reviewed Cat Scan: Report Reviewed (Rt hydroureter/ureteritis, mild Rt perinephric stranding) Problem List - Problems (1) Sepsis Code(s): A41.9 - SEPSIS, UNSPECIFIED ORGANISM (2) Urinary tract infection Code(s): N39.0 - URINARY TRACT INFECTION, SITE NOT SPECIFIED (3) Diabetes mellitus Code(s): E11.9 - TYPE 2 DIABETES MELLITUS WITHOUT COMPLICATIONS Qualifiers: Diabetes mellitus type: type 2 Diabetes mellitus senior living insulin use: without telecommunications technician use Diabetes mellitus complication status: with hyperglycemia Qualified Code(s): E11.65 - Type 2 diabetes mellitus with hyperglycemia Assessment/Plan 72 y.o. female with PMH of uncontrolled DM, HTN, HLD, ESBL+ E.coli UTI presents with fever, leukocytosis, tachycaria, RLQ abd pain/diarrhea, hyperglycemia. CT with Rt hydroureter/inflammation, Rt perinephric stranding Sepsis Gram negative bacteremia UTI/ Rt ureteritis Leukocytosis/Fever Uncontrolled DM Diarrhea HTN HLD -- will switch to Ertapenem, plan to deescalate based on culture results -- f/u urine/blood cultures -- contact isolation -- monitor wbc, temperature trend -- needs glycemic control monitor vitals closely will follow Thank you
[2018-09-20] MEDS: ASPIRIN 81 MG CHEWABLE TABLETS PO SCH (10:21)
[2018-09-20] MEDS: HEPARIN NA (PORCINE) 5,000 UNITS/ML 1ML VIAL SQ SCH ×2 (10:21→21:32)
[2018-09-20] MEDS: POTASSIUM CHLORIDE TABS 10 MEQ TABLET.ER (FP) PO SCH (10:21)
[2018-09-20] MEDS: amLODIPine BESYLATE 10 MG TABLET (FP) PO SCH (10:21)
[2018-09-20] MEDS ORDERED: ERTAPENEM SODIUM 1 GM VIAL ONE (10:23)
[2018-09-20] MEDS: ERTAPENEM SODIUM 1 GM in SODIUM CHLORIDE 50 ML IVPB SCH (10:31)
--- NOTE | 2018-09-20 12:14 | CON.GU ---
Consult Consult Specialty:: Reason for Consultation:: ureteritis - History of Present Illness Chief Complaint: blood sugar 500 History of Present Illness: 72 year old female with a PMH significant for HTN, HLD, and diabetes presented to the ED with home glucose reading of 500 and muscle weakness since that that started this AM. Adult daughters provided history. She reports having diarrhea for 2 days and abdominal pain. She did not take her medications for the past 2 days. She has not had a UTI in 3 years. She reports her most recent Hgb A1c was about 2 weeks ago and it was 9. Patient is ambulatory at home and walks around the block regularly. Overall her health has been generally good. Denies lightheadedness, syncope, SOB, cough, congestion, chest pain, palpitations, n/v. Upon admission to the ED, she was found to have a temperature of 102.3, labs notable for WBC of 29, glucose of 375, CT showed right ureteritis. She was given zosyn, IV APAP, and a liter of NS. She reports her pain has improved since her admission and she is ready to go home. cons req. - Past Medical History Cardio/Vascular: Yes: HTN, Hyperlipdemia Endocrine: Yes: Diabetes Mellitus - Past Surgical History Past Surgical History: Yes: Hysterectomy - Alcohol/Substance Use Hx Alcohol Use: No - Smoking History Smoking history: Never smoked Have you smoked in the past 12 months: No Home Medications - Allergies Allergies/Adverse Reactions: Allergies Allergy/AdvReac Type Severity Reaction Status Date / Time No Known Allergies Allergy Verified 09/19/18 12:21 - Home Medications Home Medications: Ambulatory Orders Amlodipine Besylate [Norvasc -] 10 mg PO DAILY tablet 07/05/16 Aspirin [ASA -] 81 mg PO DAILY tab.chew 07/05/16 Atorvastatin Ca [Lipitor] 10 mg PO Q2D@2200 tablet 07/05/16 Glimepiride 4 mg PO 09/19/18 Potassium Chloride [Klor-Con M10] 10 meq PO 09/19/18 Sitagliptin Phos/Metformin HCl [Janumet Xr 50-1,000 mg Tablet] BID 09/19/18 Review of Systems - Review of Systems Genitourinary: reports: Flank Pain. denies: Dysuria Physical Exam- Vital Signs: Vital Signs Temperature 99.1 F 09/20/18 09:26 Pulse Rate 94 H 09/20/18 09:26 Respiratory Rate 16 09/20/18 09:26 Blood Pressure 143/62 09/20/18 09:26 O2 Sat by Pulse Oximetry (%) 99 09/20/18 09:26 Renal/: Yes: CVA Tenderness - Right Kidneys: Yes: FLank Pain Right Labs: CBC, BMP 09/20/18 05:20 09/20/18 05:20 Imaging - Results Cat Scan: Report Reviewed, Image Reviewed Problem List - Problems (1) Ureteritis Assessment/Plan: she may have a ureteral calculus obscured by iv contrast given for CTAP. consider cysto and R JJ stent insertion if she fails to improve Code(s): N28.89 - OTHER SPECIFIED DISORDERS OF KIDNEY AND URETER (2) Abdominal pain Code(s): R10.9 - UNSPECIFIED ABDOMINAL PAIN (3) Sepsis Code(s): A41.9 - SEPSIS, UNSPECIFIED ORGANISM (4) Urinary tract infection Assessment/Plan: ur c+s, iv abxs Code(s): N39.0 - URINARY TRACT INFECTION, SITE NOT SPECIFIED (5) Diabetes mellitus out of control Code(s): E11.65 - TYPE 2 DIABETES MELLITUS WITH HYPERGLYCEMIA Qualifiers: Diabetes mellitus type: type 2 (6) Leukocytosis Code(s): D72.829 - ELEVATED WHITE BLOOD CELL COUNT, UNSPECIFIED
[2018-09-20 15:24] VITALS: BMI 27.5
[2018-09-20] MEDS: SODIUM CHLORIDE 0.9%/KCL 20 MEQ/1,000 ML INFUS.BAG IV SCH ×2 (17:51→20:54)
[2018-09-21] MEDS: INSULIN SLIDING SCALE (NOVOLOG) 1 VIAL SQ SCH ×3 (06:05→17:18)
[2018-09-21] MEDS ORDERED: PT OWN MED DRAWER 7, Y5N ONE ×2 (09:10→12:02)
[2018-09-21] MEDS: HEPARIN NA (PORCINE) 5,000 UNITS/ML 1ML VIAL SQ SCH ×2 (09:20→22:28)
[2018-09-21] MEDS: POTASSIUM CHLORIDE TABS 10 MEQ TABLET.ER (FP) PO SCH (09:20)
[2018-09-21] MEDS: ASPIRIN 81 MG CHEWABLE TABLETS PO SCH (09:20)
[2018-09-21] MEDS: amLODIPine BESYLATE 10 MG TABLET (FP) PO SCH (09:20)
[2018-09-21 09:28] LABS: HEMATOCRIT 30.9 % (32.4-45.2); HEMOGLOBIN 10.2 GM/dL (10.7-15.3); MCH 25.4 pg (25.7-33.7); MEAN CELL VOLUME 76.9 fl (80-96); MEAN PLT VOLUME 7.3 fl (7.5-11.1); PLATELET COUNT 238 K/MM3 (134-434); RBC 4.02 M/mm3 (3.60-5.2)
--- NOTE | 2018-09-21 09:41 | PN ---
Physical Exam: SUBJECTIVE: Patient seen and examined, reports she is feeling well. Denies pain , she is eating well. Staff reports she frequently has to get up to urinate. Patient eager to be discharged to home. OBJECTIVE: Vital Signs Period Temp Pulse Resp BP Sys/[place] Pulse Ox Last 24 Hr 10.3 F-98.6 F 96-106 18-20 121-145/55-69 99-99 GENERAL: Awake, alert, and fully oriented, in no acute distress. HEAD: Normal with no signs of trauma. EYES: Pupils equal, round and reactive to light, extraocular movements intact, sclera anicteric, conjunctiva clear. No lid lag. EARS, NOSE, THROAT: +Glasses nares patent, oropharynx clear without exudates. Moist mucous membranes. NECK: Normal range of motion, supple without lymphadenopathy, JVD, or masses. LUNGS: Breath sounds equal, clear to auscultation bilaterally. No wheezes, and no crackles. No accessory muscle use. HEART: Regular rate and rhythm, normal S1 and S2 without murmur, rub or gallop. ABDOMEN: Soft, nontender, not distended, normoactive bowel sounds, no guarding, no rebound, no masses. No hepatomegaly or splenomegaly. MUSCULOSKELETAL: Normal range of motion at all joints. No bony deformities or tenderness. No CVA tenderness. UPPER EXTREMITIES: 2+ pulses, warm, well-perfused. No cyanosis. No clubbing. No peripheral edema. LOWER EXTREMITIES: 2+ pulses, warm, well-perfused. No calf tenderness. No peripheral edema. NEUROLOGICAL: No facial droop, tongue midline, normal speech. PSYCHIATRIC: Cooperative. Good eye contact. Appropriate mood and affect. SKIN: Warm, dry, normal turgor, no rashes or lesions noted, normal capillary refill. Laboratory Results - last 24 hr 09/19/18 09/19/18 09/20/18 20:32 20:35 11:28 POC Glucometer > 400 > 400 [id number] 09/20/18 09/21/18 16:40 05:49 POC Glucometer 218 189 Active Medications Generic Name Dose Route Start Last Admin Trade Name Freq PRN Reason Stop Dose Admin Acetaminophen 650 mg 09/19/18 21:31 09/20/18 18:05 Tylenol - PO 650 mg Q6H PRN Administration PAIN LEVEL 1-5 OR FEVER Amlodipine Besylate 10 mg 09/20/18 10:00 09/21/18 09:20 Norvasc - PO 10 mg DAILY SAUL Administration Aspirin 81 mg 09/20/18 10:00 09/21/18 09:20 Asa - PO 81 mg DAILY SAUL Administration Atorvastatin Calcium 10 mg 09/19/18 22:00 09/19/18 21:02 Lipitor - PO 10 mg Q2D@2200 SAUL Administration Heparin Sodium (Porcine) 5,000 unit 09/19/18 22:00 09/21/18 09:20 Heparin - SQ 5,000 unit BID SAUL Administration Potassium Chloride/Sodium Chloride 20 meq in 1,000 mls @ 100 mls/hr 09/19/18 18:45 09/20/18 20:54 Ns+20 Meq Kcl - IV 100 mls/hr ASDIR SAUL Administration Ertapenem 1 gm/ Sodium 50 mls @ 50 mls/hr 09/20/18 10:30 09/20/18 10:31 Chloride IVPB 50 mls/hr DAILY SAUL Administration Protocol Insulin Aspart 1 vial 09/20/18 07:00 09/21/18 06:05 Novolog Vial Sliding Scale - SQ 2 units TIDAC SAUL Administration Protocol Potassium Chloride 10 meq 09/20/18 10:00 09/21/18 09:20 K-Dur - PO 10 meq DAILY SAUL Administration ASSESSMENT/PLAN: 72 year old female with a PMH significant for HTN, HLD, and diabetes presented to the ED with home glucose reading of 500 and muscle weakness since that that started this AM. Patient with diarrhea last night. She reports having diarrhea for 2 days and abdominal pain. CT showed right ureteritis and WBC count of 29. She was admitted for treatment with IV antibiotics. Diarrhea - Patient reports having an episode of diarrhea last night - Stool culture ordered to r/u c.diff Uretheritis - CT shows right ureteritis - WBC 29 -> 16.0, february d/c on PO cipro x 7 days - Preliminary blood and urine culture + gram negative bacilli - Seen by ID consult - Ertapenem 1 G qday - Seen by urologist Dr. Colbert - Possible ureteral calculus obscured by iv contrast given for CTAP - Consider cystoscopy and R JJ stent insertion if failure to improve DM - Hgb A1c 7.7 - Random glucose upon admission 375, could be elevated d/t infection - Monitor glucose - SS with novolog - Diabetic diet - Asa 81 mg PO qday - HOLD home Janumet and Glimiperide HTN - Amlodipine 10 mg PO qday - Losartan/HCZT 100/25 mg qday HLD - Simvastatin 10 mg PO QHS Supplement - KCL 10 meq PO qday Prophylaxis - DVT: Heparin SQ FEN - D/c IV fluids today, PO intake adequate - Replete as needed - Diabetic sodium controlled diet Disp: Patient requires further inpatient monitoring FULL CODE Visit type - Emergency Visit Emergency Visit: No - New Patient This patient is new to me today: No - Critical Care Critical Care patient: No
[2018-09-21 09:42] LABS: ANION GAP 8 MMOL/L (8-16); BLOOD UREA NITROGEN 10 mg/dL (7-18); CALCIUM 8.1 mg/dL (8.5-10.1); CHLORIDE 107 mmol/L (98-107); CO2 22 mmol/L (21-32); CREATININE 0.9 mg/dL (0.55-1.3); GLUCOSE,RANDOM 145 mg/dL (74-106); SODIUM 137 mmol/L (136-145)
[2018-09-21] MEDS: ERTAPENEM SODIUM 1 GM in SODIUM CHLORIDE 50 ML IVPB SCH (10:48)
--- NOTE | 2018-09-21 13:14 | PN ---
Progress Note, Physician History of Present Illness: patient improving pain better wbc still high - Current Medication List Current Medications: Active Medications Acetaminophen (Tylenol -) 650 mg PO Q6H PRN PRN Reason: PAIN LEVEL 1-5 OR FEVER Last Admin: 09/20/18 18:05 Dose: 650 mg Amlodipine Besylate (Norvasc -) 10 mg PO DAILY [facility] Last Admin: 09/21/18 09:20 Dose: 10 mg Aspirin (Asa -) 81 mg PO DAILY [facility] Last Admin: 09/21/18 09:20 Dose: 81 mg Atorvastatin Calcium (Lipitor -) 10 mg PO Q2D@2200 [facility] Last Admin: 09/19/18 21:02 Dose: 10 mg Heparin Sodium (Porcine) (Heparin -) 5,000 unit SQ BID [facility] Last Admin: 09/21/18 09:20 Dose: 5,000 unit Ertapenem 1 gm/ Sodium (Chloride) 50 mls @ 50 mls/hr IVPB DAILY [facility]; Protocol Last Admin: 09/21/18 10:48 Dose: 50 mls/hr Insulin Aspart (Novolog Vial Sliding Scale -) 1 vial SQ TIDAC [facility]; Protocol Last Admin: 09/21/18 11:33 Dose: 6 units Potassium Chloride (K-Dur -) 10 meq PO DAILY [facility] Last Admin: 09/21/18 09:20 Dose: 10 meq - Objective Vital Signs: Vital Signs Temperature 98.2 F 09/21/18 06:00 Pulse Rate 106 H 09/21/18 06:00 Respiratory Rate 20 09/21/18 06:00 Blood Pressure 145/69 09/21/18 06:00 O2 Sat by Pulse Oximetry (%) 99 09/20/18 21:00 Constitutional: Yes: No Distress, Calm Cardiovascular: Yes: Regular Rate and Rhythm Respiratory: Yes: Regular, CTA Bilaterally Gastrointestinal: Yes: Normal Bowel Sounds, Soft Musculoskeletal: Yes: WNL Extremities: Yes: WNL Neurological: Yes: Alert, Oriented Psychiatric: Yes: Alert, Oriented Labs: CBC, BMP 09/21/18 08:50 09/21/18 08:50 INR, PTT INR 1.36 (0.83-1.09) H 09/19/18 13:06 Assessment/Plan Problem List - Problems (1) Ureteritis Code(s): N28.89 - OTHER SPECIFIED DISORDERS OF KIDNEY AND URETER (2) Abdominal pain Code(s): R10.9 - UNSPECIFIED ABDOMINAL PAIN (3) Sepsis Code(s): A41.9 - SEPSIS, UNSPECIFIED ORGANISM (4) Urinary tract infection Assessment/Plan: ur c+s, iv abxs Code(s): N39.0 - URINARY TRACT INFECTION, SITE NOT SPECIFIED (5) Diabetes mellitus out of control Code(s): E11.65 - TYPE 2 DIABETES MELLITUS WITH HYPERGLYCEMIA Qualifiers: Diabetes mellitus type: type 2 (6) Leukocytosis Code(s): D72.829 - ELEVATED WHITE BLOOD CELL COUNT, UNSPECIFIED wbc still remaining high plan continue abx urology to see patient monitor wbc rest as per the team
[2018-09-21] MEDS: ATORVASTATIN CA 10 MG TABLET (FP) PO SCH (22:28)
[2018-09-22] MEDS: INSULIN SLIDING SCALE (NOVOLOG) 1 VIAL SQ SCH (06:23)
[2018-09-22 07:32] LABS: HEMATOCRIT 32.8 % (32.4-45.2); HEMOGLOBIN 10.7 GM/dL (10.7-15.3); MCH 25.2 pg (25.7-33.7); MCHC 32.6 g/dl (32.0-36.0); MEAN CELL VOLUME 77.2 fl (80-96); MEAN PLT VOLUME 7.3 fl (7.5-11.1); PLATELET COUNT 272 K/MM3 (134-434); RBC 4.25 M/mm3 (3.60-5.2); RDW 15.1 % (11.6-15.6); WHITE BLOOD COUNT 14.1 K/mm3 (4.0-10.0)
[2018-09-22 08:06] LABS: ANION GAP 9 MMOL/L (8-16); BLOOD UREA NITROGEN 9 mg/dL (7-18); CALCIUM 8.7 mg/dL (8.5-10.1); CHLORIDE 103 mmol/L (98-107); CO2 22 mmol/L (21-32); CREATININE 0.9 mg/dL (0.55-1.3); GLUCOSE,RANDOM 159 mg/dL (74-106); MAGNESIUM 1.9 mg/dL (1.8-2.4); POTASSIUM 4.1 mmol/L (3.5-5.1); SODIUM 134 mmol/L (136-145)
[2018-09-22] MEDS: amLODIPine BESYLATE 10 MG TABLET (FP) PO SCH (09:33)
[2018-09-22] MEDS: ASPIRIN 81 MG CHEWABLE TABLETS PO SCH (09:33)
[2018-09-22] MEDS: POTASSIUM CHLORIDE TABS 10 MEQ TABLET.ER (FP) PO SCH (09:33)
[2018-09-22] MEDS: ERTAPENEM SODIUM 1 GM in SODIUM CHLORIDE 50 ML IVPB SCH (09:33)
[2018-09-22] MEDS: HEPARIN NA (PORCINE) 5,000 UNITS/ML 1ML VIAL SQ SCH (09:33)
--- NOTE | 2018-09-22 09:38 | DS ---
Physical Exam: SUBJECTIVE: Patient seen and examined, denies pain. Eating well. Is happy to be going home today. OBJECTIVE: Vital Signs Period Temp Pulse Resp BP Sys/[place] Pulse Ox Last 24 Hr 98 F-100.0 F 97-106 19-20 142-162/59-75 99 PHYSICAL EXAM GENERAL: Awake, alert, and fully oriented, in no acute distress. HEAD: Normal with no signs of trauma. EYES: Pupils equal, round and reactive to light, extraocular movements intact, sclera anicteric, conjunctiva clear. No lid lag. EARS, NOSE, THROAT: +Glasses nares patent, oropharynx clear without exudates. Moist mucous membranes. NECK: Normal range of motion, supple without lymphadenopathy, JVD, or masses. LUNGS: Breath sounds equal, clear to auscultation bilaterally. No wheezes, and no crackles. No accessory muscle use. HEART: Regular rate and rhythm, normal S1 and S2 without murmur, rub or gallop. ABDOMEN: Soft, nontender, not distended, normoactive bowel sounds, no guarding, no rebound, no masses. No hepatomegaly or splenomegaly. MUSCULOSKELETAL: Normal range of motion at all joints. No bony deformities or tenderness. No CVA tenderness. UPPER EXTREMITIES: 2+ pulses, warm, well-perfused. No cyanosis. No clubbing. No peripheral edema. LOWER EXTREMITIES: 2+ pulses, warm, well-perfused. No calf tenderness. No peripheral edema. NEUROLOGICAL: No facial droop, tongue midline, normal speech. PSYCHIATRIC: Cooperative. Good eye contact. Appropriate mood and affect. SKIN: Warm, dry, normal turgor, no rashes or lesions noted, normal capillary refill. LABS Laboratory Results - last 24 hr 09/21/18 09/21/18 09/21/18 08:50 08:50 11:32 WBC 16.0 H RBC 4.02 Hgb 10.2 L Hct 30.9 L MCV 76.9 L MCH 25.4 L MCHC 33.0 RDW 15.0 Plt Count 238 MPV 7.3 L Sodium 137 Potassium 4.0 Chloride 107 Carbon Dioxide 22 Anion Gap 8 BUN 10 Creatinine 0.9 Creat Clearance w eGFR > 60 POC Glucometer 255 Random Glucose 145 H Calcium 8.1 L Magnesium 2.0 09/21/18 09/22/18 09/22/18 17:17 06:22 06:30 WBC 14.1 H RBC 4.25 Hgb 10.7 Hct 32.8 MCV 77.2 L MCH 25.2 L MCHC 32.6 RDW 15.1 Plt Count 272 MPV 7.3 L Sodium Potassium Chloride Carbon Dioxide Anion Gap BUN Creatinine Creat Clearance w eGFR POC Glucometer 205 167 Random Glucose Calcium Magnesium 09/22/18 06:30 WBC RBC Hgb Hct MCV MCH MCHC RDW Plt Count MPV Sodium 134 L Potassium 4.1 Chloride 103 Carbon Dioxide 22 Anion Gap 9 BUN 9 Creatinine 0.9 Creat Clearance w eGFR > 60 POC Glucometer Random Glucose 159 H Calcium 8.7 Magnesium 1.9 HOSPITAL COURSE: Date of Admission:09/19/18 Date of Discharge: 09/22/18 72 year old female with a PMH significant for HTN, HLD, and diabetes presented to the ED with home glucose reading of 500 and muscle weakness since that that started this AM. Patient with diarrhea last night. She reports having diarrhea for 2 days and abdominal pain. CT showed right ureteritis and WBC count of 29. Patient to be discharged home today. Uretheritis - CT showed right ureteritis - WBC 29 -> 16.0 -> 14.1 today - Completed 3 day course of IV Ertapenem 1 G qday - Per , february d/c on PO cipro x 7 days - Blood + gram negative bacilli - Urine culture + E. coli - Seen by urologist Dr. Colbert - Possible ureteral calculus obscured by iv contrast given for CTAP - Consider cystoscopy and R JJ stent insertion if failure to improve DM - Hgb A1c 7.7 - Random glucose upon admission 375, could be elevated d/t infection - Resume home medications Janumet and Glimiperide - Diabetic diet - Asa 81 mg PO qday Hyponatremia - Resolved - 121 on admission, 134 today HTN - Amlodipine 10 mg PO qday - Losartan/HCZT 100/25 mg qday HLD - Simvastatin 10 mg PO QHS Supplement - KCL 10 meq PO qday Minutes to complete discharge: 30 Discharge Summary Reason For Visit: URINARY TRACT INFECTION Current Active Problems Abdominal pain (Acute) Leukocytosis (Acute) Sepsis (Acute) Ureteritis (Acute) Urinary tract infection (Acute) - Instructions Diet, Activity, Other Instructions: Raudel Jenkins were admitted to [facility] from 09/19 - 09/22/18 for right ureteritis which was seen on your CT scan. You were seen by urologist Dr. Colbert who said you have a possible ureteral stone. If you continue to have right-sided abdominal pain, tell your primary care provider who will give you a referral to a urologist for a cystoscopy. You were also seen by infectious diseases specialist Dr. Bess and treated with IV antibiotics. He has given approval for you to be discharged today on oral antibiotics for one week. Resume all of your home medications START: Cipro 500 mg every 12 hours x 7 days, this medication has been called into your pharmacy. Please return to the ER if you have any signs or symptoms of chest pain, shortness of breath, uncontrollable fever, chills, nausea, vomiting, numbness, tingling, or weakness in any part of your body, changes in vision, or slurred speech. [facility] [phone] Referrals: Masha Hart MD [Primary Care Provider] - Disposition: HOME - Home Medications Comprehensive Discharge Medication List: Ambulatory Orders Amlodipine Besylate [Norvasc -] 10 mg PO DAILY tablet 07/05/16 Aspirin [ASA -] 81 mg PO DAILY tab.chew 07/05/16 Atorvastatin Ca [Lipitor] 10 mg PO Q2D@2200 tablet 07/05/16 Glimepiride 4 mg PO 09/19/18 Potassium Chloride [Klor-Con M10] 10 meq PO 09/19/18 Sitagliptin Phos/Metformin HCl [Janumet Xr 50-1,000 mg Tablet] BID 09/19/18 This patient is new to me today: No Emergency Visit: No Critical Care patient: No - Discharge Referral Referred to [facility] No
[2018-09-22 10:58] VITALS: BP 160/70; PULSE 96; TEMP 99.6
--- NOTE | 2018-09-22 11:44 | PN ---
Progress Note, Physician History of Present Illness: stable no new issues - Current Medication List Current Medications: Active Medications Acetaminophen (Tylenol -) 650 mg PO Q6H PRN PRN Reason: PAIN LEVEL 1-5 OR FEVER Last Admin: 09/20/18 18:05 Dose: 650 mg Amlodipine Besylate (Norvasc -) 10 mg PO DAILY [facility] Last Admin: 09/22/18 09:33 Dose: 10 mg Aspirin (Asa -) 81 mg PO DAILY [facility] Last Admin: 09/22/18 09:33 Dose: 81 mg Atorvastatin Calcium (Lipitor -) 10 mg PO Q2D@2200 [facility] Last Admin: 09/21/18 22:28 Dose: 10 mg Heparin Sodium (Porcine) (Heparin -) 5,000 unit SQ BID [facility] Last Admin: 09/22/18 09:33 Dose: 5,000 unit Ertapenem 1 gm/ Sodium (Chloride) 50 mls @ 50 mls/hr IVPB DAILY [facility]; Protocol Last Admin: 09/22/18 09:33 Dose: 50 mls/hr Insulin Aspart (Novolog Vial Sliding Scale -) 1 vial SQ TIDAC [facility]; Protocol Last Admin: 09/22/18 06:23 Dose: 2 units Potassium Chloride (K-Dur -) 10 meq PO DAILY [facility] Last Admin: 09/22/18 09:33 Dose: 10 meq - Objective Vital Signs: Vital Signs Temperature 99.6 F 09/22/18 09:00 Pulse Rate 96 H 09/22/18 09:00 Respiratory Rate 20 09/22/18 09:00 Blood Pressure 160/70 09/22/18 09:00 O2 Sat by Pulse Oximetry (%) 99 09/22/18 09:00 Constitutional: Yes: No Distress, Calm Cardiovascular: Yes: Regular Rate and Rhythm Respiratory: Yes: Regular, CTA Bilaterally Gastrointestinal: Yes: Normal Bowel Sounds, Soft Musculoskeletal: Yes: WNL Extremities: Yes: WNL Neurological: Yes: Alert, Oriented Psychiatric: Yes: Alert, Oriented Labs: CBC, BMP 09/22/18 06:30 09/22/18 06:30 INR, PTT INR 1.36 (0.83-1.09) H 09/19/18 13:06 Assessment/Plan Problem List - Problems (1) Ureteritis Code(s): N28.89 - OTHER SPECIFIED DISORDERS OF KIDNEY AND URETER (2) Abdominal pain Code(s): R10.9 - UNSPECIFIED ABDOMINAL PAIN (3) Sepsis Code(s): A41.9 - SEPSIS, UNSPECIFIED ORGANISM (4) Urinary tract infection Assessment/Plan: ur c+s, iv abxs Code(s): N39.0 - URINARY TRACT INFECTION, SITE NOT SPECIFIED (5) Diabetes mellitus out of control Code(s): E11.65 - TYPE 2 DIABETES MELLITUS WITH HYPERGLYCEMIA Qualifiers: Diabetes mellitus type: type 2 (6) Leukocytosis Code(s): D72.829 - ELEVATED WHITE BLOOD CELL COUNT, UNSPECIFIED wbc still remaining high plan wants to go home abx switched to oral follow with urology rest as per the team
--- NOTE | 2018-11-27 20:32 | EKG ---
Test Reason : Blood Pressure : / mmHG Vent. Rate : 109 BPM Atrial Rate : 109 BPM P-R Int : 158 ms QRS Dur : 092 ms QT Int : 328 ms P-R-T Axes : 067 027 020 degrees QTc Int : 441 ms SINUS TACHYCARDIA OTHERWISE NORMAL ECG WHEN COMPARED WITH ECG OF 19-SEP-2018 12:09, NO SIGNIFICANT CHANGE WAS FOUND Confirmed by SHAR MARY MD ([id number]) on 11/27/2018 8:32:02 PM Referred By: Confirmed By:SHAR MARY MD
== END 2018-09-22 11:51 | disposition home or self-care (01) | DRG 872 ==
LOC: JER 11:43 → JERBED 16:30 → J8W 09-20 15:15
PROVIDERS: ADMIT Hospitalist; ATTEND Nurse Practitioner Adult Health
DX: A41.9 Sepsis, unspecified organism (principal); N39.0 Urinary tract infection, site not specified; E87.1 Hypo-osmolality and hyponatremia; E78.5 Hyperlipidemia, unspecified; Z79.84 Long term (current) use of oral hypoglycemic drugs; I10 Essential (primary) hypertension; Z91.14 Patient's other noncompliance with medication regimen; E11.65 Type 2 diabetes mellitus with hyperglycemia; R19.7 Diarrhea, unspecified; D72.829 Elevated white blood cell count, unspecified; N28.89 Other specified disorders of kidney and ureter
CPT/HCPCS: 36415; 71045-TC-FY; 74177-TC; 80048; 80053; 81003; 81015; 82009; 82803; 82947; 82962; 83036; 83605; 83735; 84484; 85025; 85027; 85610; 85730; 87040; 87086; 87186; 87804; 93005; 93010; 99285-25; J0131; J1644; J7030

== ENCOUNTER 2025-08-04 15:29 | Emergency (ER) | payer OTHER ==
[2025-08-04 15:55] VITALS: BP 181/59; PULSE 97; RESP 18; TEMP 97.7; BMI 25.4
[2025-08-04] MEDS ORDERED: ACETAMINOPHEN 325 MG TABLET (FP) ONE (16:14)
[2025-08-04] MEDS: ACETAMINOPHEN 325 MG TABLET (FP) PO ONE (16:17)
== END 2025-08-04 17:06 | disposition home or self-care (01) ==
LOC: FER 15:29
DX: S92.355A Nondisplaced fracture of fifth metatarsal bone, left foot, initial encounter for closed fracture (principal); W01.0XXA Fall on same level from slipping, tripping and stumbling without subsequent striking against object, initial encounter
CPT/HCPCS: 73610-TC-LT-FY; 73630-TC-LT; 99283-25